=== PATIENT | female | born 1980 | race Caucasian/White ===

== ENCOUNTER 2016-07-27 14:32 | Emergency (ER) | payer BC ==
--- NOTE | 2016-07-27 15:20 | EDM.PDOC ---
[id number] 14:32 Source: Reports: Patient History Limitations: Reports: Uncooperative - History of Present Illness INITIAL COMMENTS - FREE TEXT/NARRATIVE: 36 years old white female came to the ed due to swelling of her left lower face since yesterday. She had dental work last week. theft lower 3rd molar was decayed, a filling was applied. Pt is currently on Abx and pain meds. Pt has a H /o Crohn's disease and takes meds for that, which she says decreases her immune system. I have recommended to do blood work, CT face to R/O abscess, infection of the salivary gland of blocked salivary duct. Suddenly, patient got upset and eloped from the ed without a comment. Symptom Onset Date: 07/26/16 Symptom Onset Time: 09:00 - Related Data Allergies/ADRs: Allergies Allergy/AdvReac Type Severity Reaction Status Date / Time codeine Allergy Cannot Verified 06/21/15 22:11 Remember fluconazole [From Diflucan] Allergy Cannot Verified 06/21/15 22:11 Remember ustekinumab [From Stelara] Allergy Rash Verified 07/27/16 15:00 Home Meds: Home Meds Amoxicillin/Clavulanate K [Augmentin 875 MG] 1 tab PO BID 07/27/16 [History] Cyclobenzaprine HCl 10 mg PO DAILY 07/27/16 [History] Hydrocodone/Acetaminophen [Hydrocodon-Acetaminophen 5-300] 1 each PO Q6HR PRN [History] Ustekinumab [Stelara] 90 mg SQ ASDIRECTED 07/27/16 [History] azaTHIOprine [Azathioprine] 50 mg PO BID 07/27/16 [History] Past Medical History Cardiovascular History: Reports: Heart murmur Gastrointestinal History: Reports: Inflammatory bowel disease - Past Surgical History GI Surgical History: Reports: Lysis of adhesions, Other (see below) (multiple small bowel resections for Crohn's Disease with strictures) Social & Family History - Tobacco Use Smoking Status *Q: Current Every Day Smoker Years of Tobacco use: 22 Packs/Tins Daily: 0.5 Second Hand Smoke Exposure: Yes - Recreational Drug Use Recreational Drug Use: No ED ROS ENT - Review of Systems Review Of Systems: Unable To Obtain ED EXAM, ENT - Physical Exam Exam: Not Obtained Course - Vital Signs Text/Narrative:: 36 years old white female came to the ed due to swelling of her left lower face since yesterday. She had dental work last week. theft lower 3rd molar was decayed, a filling was applied. Pt is currently on Abx and pain meds. Pt has a H /o Crohn's disease and takes meds for that, which she says decreases her immune system. I have recommended to do blood work, CT face to R/O abscess, infection of the salivary gland of blocked salivary duct. Suddenly, patient got upset and eloped from the ed without a comment. PE: DX Tooth vs abscess vs sialadenitis vs blocked salivary duct. Pt saddely left AMA without signing the AMA papers. Last Recorded V/S: Last Vital Signs Temp 36.9 C 07/27/16 14:55 Pulse 97 07/27/16 14:55 Resp 18 07/27/16 14:55 BP 139/81 07/27/16 14:55 Pulse Ox 100 07/27/16 14:55 Departure - Departure Time of Disposition: 15:01 Disposition: Against Medical Advice 07 Condition: fair Clinical Impression: Left against medical advice Referrals: Philip Dennison MD [Primary Care Provider] - Forms: ED Department Discharge
[2016-07-27 15:30] VITALS: BP 139/81
== END 2016-07-27 15:10 | disposition left against medical advice (07) ==
LOC: FB.ED 14:32
DX: Z53.21 Procedure and treatment not carried out due to patient leaving prior to being seen by health care provider (principal)
CPT/HCPCS: 99282

== ENCOUNTER 2021-07-03 20:48 | Emergency (ER) | payer BC, OTHER ==
[2021-07-03] MEDS ORDERED: HYDROmorphone 2 MG/ML SDV IM ONE (21:03)
[2021-07-03 22:33] VITALS: BP 139/77; PULSE 80
== END 2021-07-03 21:30 | disposition home or self-care (01) ==
LOC: FB.ED 20:48
DX: R10.11 Right upper quadrant pain (principal); Z88.8 Allergy status to other drugs, medicaments and biological substances
CPT/HCPCS: 96372; 99283; J1170

== ENCOUNTER 2022-04-03 10:57 | Emergency (ER) | payer OTHER ==
[2022-04-03 13:14] LABS: CORONAVIRUS COVID-19 NAA NEGATIVE (NEGATIVE)
[2022-04-03 13:39] VITALS: BP 119/54; PULSE 78
== END 2022-04-03 13:36 | disposition home or self-care (01) ==
LOC: FB.ED 10:57
DX: J20.9 Acute bronchitis, unspecified (principal); Z72.0 Tobacco use; Z88.5 Allergy status to narcotic agent; Z88.8 Allergy status to other drugs, medicaments and biological substances; Z79.899 Other long term (current) drug therapy; Z20.822 Contact with and (suspected) exposure to COVID-19
CPT/HCPCS: 0240U; 71045; 99283

== ENCOUNTER 2023-06-15 08:35 | Emergency (ER) | payer BC ==
[2023-06-15 08:53] VITALS: PULSE 87
[2023-06-15] MEDS: hydrOXYzine HCl 50 MG/ML SDV IM ONE (09:02)
[2023-06-15] MEDS: Ketorolac 30 MG/ML SDV IM STA (09:02)
[2023-06-15 10:09] VITALS: BP 124/81
== END 2023-06-15 09:55 | disposition home or self-care (01) ==
LOC: FB.ED 08:35
DX: G43.909 Migraine, unspecified, not intractable, without status migrainosus (principal); F17.210 Nicotine dependence, cigarettes, uncomplicated; Z90.49 Acquired absence of other specified parts of digestive tract; Z79.899 Other long term (current) drug therapy; Z88.5 Allergy status to narcotic agent; Z88.8 Allergy status to other drugs, medicaments and biological substances
CPT/HCPCS: 96372; 99283; J1885; J3410

== ENCOUNTER 2023-06-16 13:12 | Emergency (ER) | payer BC ==
[2023-06-16 13:37] LABS: BASOPHILS ABSOLUTE AUTO 0.1 x10-3/uL (0.0-0.1); EOSINOPHILS ABSOLUTE AUTO 0.2 x10-3/uL (0.0-0.8); EOSINOPHILS PERCENT AUTO 2.8 % (0.6-8.1); HEMATOCRIT 41.3 % (34.2-48.2); LYMPHOCYTES ABSOLUTE AUTO 1.4 x10-3/uL (1.0-4.4); LYMPHOCYTES PERCENT AUTO 18.4 % (18.4-52.1); MEAN CORPUSCULAR HEMOGLOBIN 32.5 pg (23.9-33.9); MEAN CORPUSCULAR HGB CONC 33.7 g/dL (31.9-34.8); MEAN CORPUSCULAR VOLUME 96.4 fL (76.7-100.5); MEAN PLATELET VOLUME 7.2 fL (7.1-12.4); MONOCYTES ABSOLUTE AUTO 0.4 x10-3/uL (0.3-1.0); MONOCYTES PERCENT AUTO 5.6 % (4.4-15.7); NEUTROPHILS ABSOLUTE AUTO 5.4 x10-3/uL (1.5-6.3); NEUTROPHILS PERCENT AUTO 72.2 % (30.8-76.2); PLATELET COUNT,PLT 274 x10(3)uL (151-488); RED BLOOD CELL COUNT 4.29 x10(6)uL (3.60-5.20); RED CELL DISTRIBUTION WIDTH 13.8 % (12.3-16.5); WHITE BLOOD CELL COUNT,WBC 7.4 x10-3/uL (3.0-10.3)
[2023-06-16 13:44] LABS: BLOOD UREA NITROGEN,BUN 19 mg/dL (7-18); CALCIUM 9.4 mg/dL (8.6-10.2); CARBON DIOXIDE,CO2 31 mmol/L (21-32); CHLORIDE,CL 99 mmol/L (100-110); EST CRCL DRUG DOSING (CG) 76.59 mL/min; ESTIMATED GFR 72 mL/min (>60); GLUCOSE RANDOM 77 mg/dL (80-116); POTASSIUM,K 3.8 mmol/L (3.5-5.3); SODIUM,NA 138 mmol/L (135-145)
[2023-06-16] MEDS: Aspirin 81 MG Tab.Chew PO STA (13:50)
[2023-06-16 13:51] LABS: A/G RATIO 0.9; ALANINE AMINOTRANSFERASE,ALT 31 U/L (12-36); ALBUMIN 3.6 g/dL (3.5-5.2); ALKALINE PHOSPHATASE 81 IU/L (56-112); ASPARTATE AMNIOTRANSFERASE,AST 21 IU/L (5-25); BILIRUBIN TOTAL 0.9 mg/dL (0.1-1.3); PROTEIN TOTAL,TP 7.5 g/dL (6.0-8.0)
[2023-06-16] MEDS: Nitroglycerin 0.4 MG Tab.SL SL ONE (13:51)
[2023-06-16 13:58] LABS: PRO B-TYPE NATRIUR PEPT,BNPPRO 63 pg/mL (<=125); TSH ULTRASENSITIVE 1.82 IU/mL (0.36-3.74)
[2023-06-16] MEDS: Sodium Chloride 0.9% 10 ML Syringe FLUSH PRN (14:06)
[2023-06-16 14:08] LABS: TROPONIN I < 4.0 pg/mL (4.0-60.3)
[2023-06-16] MEDS: Dextrose 5%-0.9% NaCl 1,000 ML IV SCH (14:44)
[2023-06-16] MEDS: Metoclopramide 10 MG/2 ML SDV IVPUSH ONE (14:45)
[2023-06-16 16:10] VITALS: BP 123/78; PULSE 86
== END 2023-06-16 16:14 | disposition home or self-care (01) ==
LOC: FB.ED 13:12
DX: R07.9 Chest pain, unspecified (principal); E86.0 Dehydration; F17.210 Nicotine dependence, cigarettes, uncomplicated; Z79.899 Other long term (current) drug therapy; Z90.49 Acquired absence of other specified parts of digestive tract; Z88.5 Allergy status to narcotic agent; Z88.8 Allergy status to other drugs, medicaments and biological substances
CPT/HCPCS: 36415; 71046; 80053; 83880; 84443; 84484; 85025; 93005; 93010; 96361; 96374; 99283; 99285-25; A9270-GY; J2765; J3490